=== PATIENT | female | born 1995 | race Caucasian/White ===

== ENCOUNTER 2018-07-18 16:39 | Outpatient (CLI) | payer BC, OTHER ==
--- NOTE | 2018-07-19 00:38 | Ultrasound Report ---
Reason: EXCESSIVE MENSTRUATION Procedure Date: 07/18/2018 Accession Number: [id number] / [id number] Procedure: US - Pelvic w/Transvaginal CPT Code: FULL RESULT: EXAM: PELVIC ULTRASOUND EXAM DATE: 07/18/2018 05:33 PM. CLINICAL HISTORY: Excessive menstruation. COMPARISON: None. TECHNIQUE: Real-time transabdominal pelvic scan performed to identify the uterus and adnexa and as an overview of other pelvic structures, followed by transvaginal scan to provide greater detail of the uterus and adnexa, with static image documentation. FINDINGS: LMP: 07/06/2018 Uterus: Uterus is normal in position and normal in configuration. Uterus measures 7.8 x 4.3 x 3.1 cm. No evident uterine masses. Endometrium: Endometrium measures 1.9 mm. No suspicious thickening or vascularity. Cervix: No suspicious lesion. Right Ovary: Normal in appearance measuring 2.8 x 2.4 x 1.9 cm. Normal blood flow. Left Ovary: Normal in appearance measuring 3.3 x 2.8 x 2.4 cm. Dominant 15 mm follicle. Normal blood flow. Fluid: No signficant free fluid. Other: No other significant findings. IMPRESSION: No significant abnormality demonstrated to account for excessive menstruation. Instead, endometrial stripe complex appears very thin. Assuming a 28 day cycle, this is thinner than expected. RADIA
== END 2018-07-18 16:40 | disposition home or self-care (01) ==
LOC: DI 16:39
PROVIDERS: ATTEND Nurse Practitioner Obstetrics & Gynecology
DX: N92.5 Other specified irregular menstruation (principal)
CPT/HCPCS: 76830; 76856

== ENCOUNTER 2018-08-09 18:39 | Emergency (ER) | payer BC, OTHER ==
[2018-08-09 18:46] VITALS: BP 126/83
--- NOTE | 2018-08-09 19:48 | ED Physician Documentation ---
PD HPI URI - Stated complaint Stated Complaint: THROAT PX - Chief complaint Chief Complaint: Heent - History obtained from History obtained from: Patient - History of Present Illness Timing - onset: Other (Sore throat for 4-5 days without fever, cough, runny nose.) Review of Systems Constitutional: denies: Fever, Chills Nose: denies: Rhinorrhea / runny nose, Congestion, Sinus pressure / pain Cardiac: denies: Chest pain / pressure, Palpitations Respiratory: denies: Dyspnea PD PAST MEDICAL HISTORY - Present Medications Home Medications: Ambulatory Orders Medication Instructions Recorded Confirmed Dextroamphetamine/Amphetamine 08/09/18 [Adderall 20 mg Tablet] - Allergies Allergies/Adverse Reactions: Allergies Allergy/AdvReac Type Severity Reaction Status Date / Time Penicillins Allergy Respiratory Verified 08/09/18 18:46 PD ED PE NORMAL - Vitals Vital signs reviewed: Yes - General General: Alert and oriented X 3, No acute distress - HEENT HEENT: Other (Tonsils are mildly red but not swollen, no exudates or Lymphadenopathy) - Neck Neck: Supple, no meningeal sign, No bony TTP - Neuro Neuro: Alert and oriented X 3, Normal speech Results - Vitals Vitals: Vital Signs - 24 hr 08/09/18 18:44 Temperature 36.0 C L Heart Rate 94 Respiratory 14 Rate Blood Pressure 126/83 H O2 Saturation 100 Oxygen O2 Source Room air - Labs Labs: Laboratory Tests 08/09/18 18:45 Group A Strep Rapid Negative Departure - Departure Disposition: Home, Self Care Clinical Impression: Viral pharyngitis Condition: Good Record reviewed to determine appropriate education?: Yes Instructions: ED Pharyngitis Viral Report Pending Comments: Ibuprofen and Chloraseptic as needed for pain. We will call in 1-2 days if the strep culture is positive.
== END 2018-08-09 20:15 | disposition home or self-care (01) ==
LOC: ED 18:39
DX: B34.9 Viral infection, unspecified (principal)
CPT/HCPCS: 87070; 87430; 99282; 99283